=== PATIENT | female | born 1995 | race Caucasian/White ===

== ENCOUNTER 2016-07-23 12:48 | Emergency (ER) | payer BC ==
[2016-07-23 13:02] VITALS: BP 131/80
--- NOTE | 2016-07-23 13:25 | UC ---
Complaint Female HPI - History Of Current Complaint Chief Complaint: UCRespiratory Stated Complaint: SORE THROAT Time Seen by Provider: 07/23/16 13:05 Hx Last Menstrual Period: 07/18/16 - Allergies/Home Medications Allergies/Adverse Reactions: Allergies Allergy/AdvReac Type Severity Reaction Status Date / Time No Known Allergies Allergy Verified 07/23/16 13:02 PMH/Surg Hx/FS Hx/Imm Hx Endocrine History Of: Denies: Diabetes, Thyroid Disease Cardiovascular History Of: Denies: Cardiac Disorders Respiratory History Of: Denies: Asthma - Surgical History Surgical History: Yes Surgery Procedure, Year, and Place: appy - Social History Alcohol Use: Rare Substance Use Type: None Smoking Status (MU): Never Smoked Tobacco Physical Exam Vital Signs: Initial Vital Signs Temp 98.6 F 07/23/16 12:56 Pulse 77 07/23/16 12:56 Resp 14 07/23/16 12:56 BP 131/80 07/23/16 12:56 Pulse Ox 99 07/23/16 12:56 Complaint Female Dx - Differential Dx/Diagnosis Differential Diagnosis/HQI/PQRI: Endometriosis, Ovarian Cyst, , Sexually Transmitted Disease, Ureteral Stone, Urinary Tract Infection Provider Diagnoses: pre-menstraul vaginal bleeding, blood in urine, early menses Discharge - Discharge Plan Condition: Stable Disposition: HOME Patient Education Materials: Menstruation (ED), Dysfunctional Uterine Bleeding (ED) Referrals: Non Staff,Doctor [Primary Care Provider] - Additional Instructions: Follow-up with your primary care provider, obgyn or return to if symptoms persist over 5-7 days. Take OTC Aleve, ibuprofen or midol for pain and discomfort. If symptoms worsen or become more painful please seek medical attention promptly. Avoid strenuous exercise over the next couple of days.
--- NOTE | 2016-07-23 13:29 | UC ---
Throat Pain/Nasal Aníbal HPI - HPI Summary HPI Summary: 21 female presents complaining of a sore throat with enlarged tonsils and white patches. She states she was prone to strep as a child and think she may have it again. Admits to her roommate being diagnosed with strep throat. Patient states symptoms began 3 days ago and have not seemed to get any better. She denies any difficulty breathing however admits to it being harder during running and basketball practice because her throat and tonsils are so swollen. Denies sinus congestion, cough, ear pain and nausea/vomiting. She has not tried taking anything for her throat. Nothing seems to make the sore throat better or worse. - History of Current Complaint Chief Complaint: UCRespiratory Stated Complaint: SORE THROAT Time Seen by Provider: 07/23/16 13:05 Hx Obtained From: Patient Hx Last Menstrual Period: 07/18/16 ?: No Onset/Duration: Sudden Onset, Lasting Days Severity: Moderate Pain Intensity: 3 Pain Scale Used: 0-10 Numeric Cough: None Associated Signs & Symptoms: Positive: Dysphagia. Negative: Drooling, Hoarseness, Sinus Discomfort, Nasal Discharge, Fever - Allergies/Home Medications Allergies/Adverse Reactions: Allergies Allergy/AdvReac Type Severity Reaction Status Date / Time No Known Allergies Allergy Verified 07/23/16 13:02 PMH/Surg Hx/FS Hx/Imm Hx Previously Healthy: Yes Endocrine History Of: Denies: Diabetes, Thyroid Disease Cardiovascular History Of: Denies: Cardiac Disorders Respiratory History Of: Denies: Asthma - Surgical History Surgical History: Yes Surgery Procedure, Year, and Place: appy - Family History Known Family History: Positive: None - Social History Alcohol Use: Rare Substance Use Type: None Smoking Status (MU): Never Smoked Tobacco - Immunization History Vaccination Up to Date: Yes Review of Systems Constitutional: Negative Skin: Negative Eyes: Negative ENT: Sore Throat Respiratory: Negative Cardiovascular: Negative Gastrointestinal: Negative Musculoskeletal: Negative Neurological: Negative Psychological: Negative All Other Systems Reviewed And Are Negative: Yes Physical Exam Triage Information Reviewed: Yes Appearance: Well-Appearing, No Pain Distress, Well-Nourished Vital Signs: Initial Vital Signs Temp 98.6 F 07/23/16 12:56 Pulse 77 07/23/16 12:56 Resp 14 07/23/16 12:56 BP 131/80 07/23/16 12:56 Pulse Ox 99 07/23/16 12:56 Vital Signs Reviewed: Yes Eyes: Positive: Conjunctiva Clear ENT: Positive: Hearing grossly normal, Pharyngeal erythema, TMs normal, Tonsillar swelling - severe tonsil edema bilaterally with exudates noted throughout, erythema. painful upon swallowing, Tonsillar exudate. Negative: Nasal drainage Dental Exam: Normal Neck: Positive: Supple, Nontender, Enlarged Nodes @ - swollen node on left cervical neck Respiratory: Positive: Chest non-tender, Lungs clear, Normal breath sounds, No respiratory distress, No accessory muscle use Cardiovascular: Positive: RRR, No Murmur, Pulses Normal, Brisk Capillary Refill - <2 seconds Abdominal Exam: Normal Bowel Sounds: Positive: Present Musculoskeletal Exam: Normal Neurological Exam: Normal Psychological Exam: Normal Skin Exam: Normal Throat Pain/Nasal Course/Dx - Course Course Of Treatment: strep culture was taken and results both came back invalid. due to patients physcial exam signs and recent contact with positive strep, patient will be treated with amoxicillin for 10 days and short course of prednisone to help with inflammation. also instructed to use chloraseptic spray. recommended to take a day or 2 off of basketball practice. - Differential Dx/Diagnosis Differential Diagnosis/HQI/PQRI: Influenza, Laryngitis, Pharyngitis, Sinusitis, Tonsillitis, URI Provider Diagnoses: pharyngitis, tonsillits Discharge - Discharge Plan Condition: Stable Disposition: HOME Prescriptions: Amoxicillin CAP* 500 mg PO Q12H #20 cap predniSONE TAB* [Deltasone TAB*] 40 mg PO DAILY #6 tab Patient Education Materials: Strep Throat (ED) Referrals: Non Staff,Doctor [Primary Care Provider] - Additional Instructions: Take medications as prescribed until all doses are finished, even if you start to feel better. Avoid being around other people as it is contagious. If symptoms worsen or do not improve please return to UC or seek medical attention promptly. You may also take Tylenol for pain and fever. Drink plenty of fluids and get a lot of rest. Gargle with salt water a few times a day to help with symptoms. Chloraseptic spray may also help with sore throat. Recommend sitting out on basketball practice for the next day or 2.
== END 2016-07-23 13:55 | disposition home or self-care (01) ==
LOC: UCCORT 12:48
DX: J02.9 Acute pharyngitis, unspecified (principal); J03.90 Acute tonsillitis, unspecified
CPT/HCPCS: 99212; G0463

== ENCOUNTER 2017-03-24 18:23 | Emergency (ER) | payer BC ==
[2017-03-24 19:08] VITALS: BP 124/69
--- NOTE | 2017-03-24 19:11 | UC ---
Throat Pain/Nasal Aníbal HPI - HPI Summary HPI Summary: 22 y/o female presents to the urgent care c/o sore throat and body aches for the past 2 days. Pt states mild subjective fever at home. She took Advil 400mg PO this morning. Pt denies SOB, cough, nasal congestion, DEXTER, abdominal pain, N/V /D, - History of Current Complaint Chief Complaint: UCRespiratory Stated Complaint: SORE THROAT Time Seen by Provider: 03/24/17 19:09 Hx Obtained From: Patient Hx Last Menstrual Period: 03/21/17 ?: No Onset/Duration: Gradual Onset, Lasting Days - 2 days, Still Present Pain Intensity: 5 Pain Scale Used: 0-10 Numeric Cough: None Associated Signs & Symptoms: Positive: Dysphagia, Fever - subjective at home - Epiglottits Risk Factors Epiglottis Risk Factors: Negative - Allergies/Home Medications Allergies/Adverse Reactions: Allergies Allergy/AdvReac Type Severity Reaction Status Date / Time No Known Allergies Allergy Verified 03/24/17 19:08 PMH/Surg Hx/FS Hx/Imm Hx Previously Healthy: Yes - Pt denies PMHX. - Surgical History Surgical History: Yes Surgery Procedure, Year, and Place: appy - Family History Known Family History: Positive: None - Pt denies FMHX - Social History Occupation: Employed Full-time, Student Lives: With Family Alcohol Use: Rare Substance Use Type: None Smoking Status (MU): Never Smoked Tobacco - Immunization History Most Recent Influenza Vaccination: no Vaccination Up to Date: Yes Review of Systems Constitutional: Fever - subjective fever at home Skin: Negative Eyes: Negative ENT: Sore Throat Respiratory: Negative Cardiovascular: Negative Gastrointestinal: Negative Genitourinary: Negative Motor: Negative Neurovascular: Negative Musculoskeletal: Negative Neurological: Negative Psychological: Negative Is Patient Immunocompromised?: No All Other Systems Reviewed And Are Negative: Yes Physical Exam Triage Information Reviewed: Yes Vital Signs: Initial Vital Signs Temp 99.1 F 03/24/17 19:04 Pulse 83 03/24/17 19:04 Resp 16 03/24/17 19:04 BP 124/69 03/24/17 19:04 Pulse Ox 100 03/24/17 19:04 - Additional Comments VITAL SIGNS: Reviewed. GENERAL: Patient is a well developed and nourished who is sitting comfortable in the examining table. Patient is not in any acute respiratory distress. HEAD AND FACE: No signs of trauma. No ecchymosis, hematomas or skull depressions. No sinus tenderness. EYES: PERRLA, EOMI x 2, No injected conjunctiva, no nystagmus. No photophobia. EARS: Hearing grossly intact. Ear canals and tympanic membranes are within normal limits. MOUTH: Positive pharynx with erythema, exudates, no palatal petechiae. B/L tonsillar enlargement with exudate. Uvula in midline. NECK: Supple, trachea is midline, Positive anterior cervical lymphadenopathy, no JVD, no carotid bruit, no c-spine tenderness, neck with full ROM. CHEST: Symmetric, no tenderness at palpation LUNGS: Clear to auscultation bilaterally. No wheezing or crackles. CVS: Regular rate and rhythm, S1 and S2 present, no murmurs or gallops appreciated. ABDOMEN: Soft, non-tender. No signs of distention. No rebound no guarding, and no masses palpated. Bowel sounds are normal. EXTREMITIES: FROM in all major joints, no edema, no cyanosis or clubbing. NEURO: Alert and oriented x 3. No acute neurological deficits. Speech is normal and follows commands. SKIN: Dry and warm Throat Pain/Nasal Course/Dx - Course Course Of Treatment: 22 y/o female presents to the urgent care c/o sore throat and body aches for the past 2 days. Pt states mild subjective fever at home. She took Advil 400mg PO this morning. Pt denies SOB, cough, nasal congestion, DEXTER , abdominal pain, N/V/D, HX obtained. Rapid strep ordered; result: negative, Viral pharyngitis. Pt Rx Ibuprofen PO to alleviate symptoms. Pt advised to increase fluid intake, rest, eat well, Avoid strenuous exercise and if symptoms do not improve or worsen please return to the urgent care or f/u with your PCP for further evaluation and treatment. Pt understood and agreed with plan of care. Work form given. Pt left the clinic ambulating. - Differential Dx/Diagnosis Differential Diagnosis/HQI/PQRI: Influenza, Laryngitis, Mononucleosis, Peritonsillar Abscess, Pharyngitis, Tonsillitis, URI Provider Diagnoses: 1- Viral pharyngitis Discharge - Discharge Plan Condition: Stable Disposition: HOME Prescriptions: Ibuprofen TAB* [Motrin TAB* 800 MG] 800 mg PO Q6H #30 tab Patient Education Materials: Pharyngitis (ED) Forms: *Work Release Referrals: [facility]ERR[facility] [Outside] Additional Instructions: 1-Please take ibuprofen PO q6-8hrs prn as instructed after meals to alleviate pain and swelling. increase fluid intake, rest, eat well, Avoid strenuous exercise. 2-If symptoms do not improve or worsen please return to the urgent care or f/u with your PCP for further evaluation and treatment.
== END 2017-03-24 19:53 | disposition home or self-care (01) ==
LOC: UCCORT 18:23
DX: J02.9 Acute pharyngitis, unspecified (principal)
CPT/HCPCS: 87651; 99212; G0463